=== PATIENT | male | born 2000 | race Caucasian/White ===

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

== ENCOUNTER 2021-03-31 22:30 | Emergency (ER) | payer OTHER ==
[~2021-03-31 22:30] MED LIST: ASPIRIN CHEWABL81 MG PO; FLEXERIL 10 MG10 MG PO; ZOFRAN ODT 4 MG4 MG PO
== END 2021-04-01 00:20 | disposition left against medical advice (07) ==
LOC: ER1 22:30
DX: Z53.21 Procedure and treatment not carried out due to patient leaving prior to being seen by health care provider (principal)

== ENCOUNTER 2021-09-18 11:37 | Emergency (ER) | payer OTHER ==
[2021-09-18] MEDS ORDERED: CEPHALEXIN500 M1 PO (12:47)
[2021-09-18] MEDS ORDERED: DOXYCYCLINE HY100 M2 PO (12:47)
[2021-09-18] MEDS ORDERED: CENTANY30 GM TP (12:48)
[2021-09-21 05:11] LABS: RPR Non Reactive (Non Reactive)
== END 2021-09-18 13:35 | disposition home or self-care (01) ==
LOC: ER1 11:37
PROVIDERS: Physician Assistant
DX: N48.22 Cellulitis of corpus cavernosum and penis (principal); F17.290 Nicotine dependence, other tobacco product, uncomplicated
CPT/HCPCS: 86592; 87070; 87077; 87186; 87205; 87252; 99284

== ENCOUNTER 2022-01-10 14:35 | Emergency (ER) | payer SELFPAY ==
[~2022-01-10 14:35] MED LIST changes: +CENTANY30 GM TP; +CEPHALEXIN500 M1 PO; +DOXYCYCLINE HY100 M2 PO
== END 2022-01-10 16:04 | disposition home or self-care (01) ==
LOC: ER1 14:35
DX: S09.90XA Unspecified injury of head, initial encounter (principal); F17.200 Nicotine dependence, unspecified, uncomplicated; W22.8XXA Striking against or struck by other objects, initial encounter
CPT/HCPCS: 70450; 99284

== ENCOUNTER 2022-04-21 23:57 | Emergency (ER) | payer OTHER ==
[2022-04-22] MEDS ORDERED: NAPROSYN500 MG PO (02:51)
== END 2022-04-22 03:16 | disposition home or self-care (01) ==
LOC: ER1 23:57
DX: M54.42 Lumbago with sciatica, left side (principal); F17.290 Nicotine dependence, other tobacco product, uncomplicated
CPT/HCPCS: 96372; 99283; J1885